=== PATIENT | female | born 1975 | race Hispanic/Latino ===

== ENCOUNTER 2022-10-06 13:11 | Emergency (ER) | payer OTHER ==
[~2022-10-06] VITALS: Ht 154.9 cm; Wt 92.1 kg
[2022-10-06 19:31] LABS: BASOPHILS % (AUTO) 0.5 % (0.0-5.0); EOSINOPHILS % (AUTO) 2.5 % (0.0-8.0); HEMATOCRIT 44.7 % (36-48); LYMPHOCYTES % (AUTO) 28.7 % (21.0-51.0); MEAN CORPUSCULAR HEMOGLOBIN 24.2 pg (27.0-33.0); MEAN CORPUSCULAR HGB CONC 30.9 g/dL (32.0-36.0); MEAN CORPUSCULAR VOLUME 78.3 fL (79-99); MONOCYTES % (AUTO) 5.5 % (3.0-13.0); NEUTROPHILS % (AUTO) 62.7 % (40.0-77.0); PLATELET COUNT (AUTO) 289 K/uL (130-400); RED BLOOD CELL COUNT(AUTO) 5.71 MIL/uL (4.00-5.50); RED CELL DISTRIBUTION WIDTH 13.8 % (11.0-15.5); WHITE BLOOD COUNT (AUTO) 8.5 K/uL (4.8-10.8)
[2022-10-06 20:15] LABS: CREATININE 0.7 mg/dL (0.5-1.5); POTASSIUM 4.1 mmol/L (3.5-5.1)
[2022-10-06 20:19] LABS: ALBUMIN 3.6 g/dL (3.5-5.0); TOTAL PROTEIN, SERUM 8.7 g/dL (6.0-8.3)
[2022-10-06] MEDS ORDERED: DICY20TA2 PO (20:39)
[2022-10-06] MEDS ORDERED: ONDA4TAB10 PO (20:39)
[2022-10-06 20:42] VITALS: BP 135/80
[2022-10-06] MEDS ORDERED: DICYCLOMINE HCL 20 MG TAB PO SCH (21:00)
[2022-10-06] MEDS ORDERED: ONDANSETRON ODT 4MG TAB SL ONE (21:00)
== END 2022-10-06 20:49 | disposition home or self-care (01) ==
LOC: EDH 13:11
DX: R11.2 Nausea with vomiting, unspecified (principal); R19.7 Diarrhea, unspecified; R10.9 Unspecified abdominal pain; Z20.822 Contact with and (suspected) exposure to COVID-19
CPT/HCPCS: 99283; 87635; 80053; 85025; 87804 ×2; 36415; C9803